=== PATIENT | male | born 1950 | race Caucasian/White ===

== ENCOUNTER → 2016-08-07 | Outpatient (CLI) | payer OTHER ==
--- NOTE | 2016-08-07 18:48 | Diagnostic Imaging Report ---
TECHNIQUE: Multiplanar, multisequence non contrast-enhanced MRI of the right upper extremity was accomplished. INDICATION: Chronic right shoulder pain with no known injuries. EXAMINATION: MRI of the right shoulder without contrast, 08/07/2016. FINDINGS: There is diffuse irregularity noted within the supraspinatus tendon, especially anteriorly at the footprint. Within this region, a full-thickness supraspinatus tear is noted measuring 9.3 mm in AP dimension. Retraction of approximately 8.6 mm noted. More posteriorly, areas of high signal within the infraspinatus tendon also noted likely due to a partial thickness articular-sided tear without definite extension through the bursal surface. Minimal adjacent edema in the subdeltoid subacromial bursa noted. The subscapularis tendon contains high signal at the lesser tuberosity which could represent a small focal tear versus tendinosis. No retraction appreciated. The long head of the biceps tendon lies within the bicipital groove. There is no discontinuity. There is questioned mild high signal within the posterior superior labrum which could be degenerative signal. If there are symptoms suggestive of a tear, post arthrogram imaging could better characterize the labrum. Muscle volume preserved. There is minimal acromioclavicular osteoarthritic change. IMPRESSION: 1. Full-thickness tear of the anterior supraspinatus tendon as described above with possible partial articular-sided tear of the infraspinatus tendon. 2. Findings along the subscapularis tendon likely due to tendinosis versus a partial tear. No retraction. 3. Degenerative findings with high signal in the superior labrum, possibly on a degenerative basis. If there are symptoms suggestive of a labral tear; however, post arthrogram imaging could better characterize. Dictated by: Dictated on workstation # [id number]
== END ==
LOC: RAD 15:56
PROVIDERS: ATTEND Orthopaedic Surgery
DX: S46.011A Strain of muscle(s) and tendon(s) of the rotator cuff of right shoulder, initial encounter (principal); X58.XXXA Exposure to other specified factors, initial encounter; Y99.8 Other external cause status
CPT/HCPCS: 73221